=== PATIENT | male | born 1955 | race Caucasian/White ===

== ENCOUNTER 2020-02-13 12:21 | Outpatient (NON) | payer MEDICARE, OTHER, SELFPAY ==
[2020-02-13 16:05] LABS: Influenza Control Positive
[2020-02-14 19:25] LABS: SARS-CoV-2 RNA PCR Negative
== END 2020-02-13 12:22 ==
PROVIDERS: PCP Internal Medicine; Visit Provider Internal Medicine
DX: Z20.828 Contact with and (suspected) exposure to other viral communicable diseases (principal)
CPT/HCPCS: 87635; 87804; C9803; U0003

== ENCOUNTER 2021-07-21 22:24 | Emergency (ER) | payer MEDICARE, OTHER, SELFPAY ==
--- NOTE | ~2021-07-21 | CT_ITS ---
EXAMINATION: CT abdomen pelvis wo con DATE: 07/22/2021 00:44 INDICATION: Left flank pain. TECHNIQUE: Computed tomography (CT) of the abdomen and pelvis was performed without intravenous contr ast. Automated exposure control and iterative reconstruction technique were employed. The dose-length product was 1578.55 mGy-cm. COMPARISON: CT abdomen and pelvis 05/03/2004 FINDINGS: The visualized portions of the lung bases demonstrate mild atelectasis. No pleural effusion . The heart size is normal. No pericardial effusion. There is diffuse hepatic steatosis. The gallblad symone, spleen, pancreas, adrenal glands, and right kidney are normal. There is a 1 mm stone in left kid greer. There is mild left hydronephrosis and hydroureter. There is a 2 mm stone in distal left ureter. There is diverticulosis of the colon without evidence of diverticulitis. The appendix is normal. Ther e is a left inguinal hernia containing fat. There are no pathologically enlarged lymph nodes. There i s no free intraperitoneal fluid. There is severe lower lumbar spondylosis. IMPRESSION: 1. 2 mm stone in distal left ureter with mild left hydronephrosis and hydroureter. 2. 1 mm nonobstructing left kidney stone. Reviewed, dictated and finalized at location A. IMPRESSION: 1. 2 mm stone in distal left ureter with mild left hydronephrosis and hydrouret er. 2. 1 mm nonobstructing left kidney stone.
[2021-07-21 22:36] VITALS: BP 199/105; PULSE 68; RESP 16; TEMP 36.4; O2SAT 99
[2021-07-21 22:53] LABS: Basophils Absolute Auto 0.1 K/mm3 (0.0-0.1); Eosinophils Absolute Auto 0.3 K/mm3 (0-0.3); Eosinophils Percent Auto 4.9 % (0-4.4); Hematocrit 46.1 % (42.0-52.0); Hemoglobin 15.3 g/dL (14.0-18.0); Immature Granulocyte Absolute 0.02 K/mm3 (0.00-0.031); Immature Granulocyte Percent A 0.3 % (0-0.5); Lymphocytes Absolute Auto 1.27 K/mm3 (0.9-3.2); Lymphocytes Percent Auto 21.4 % (18.3-44.2); Mean Corpuscular HGB Conc 33.2 g/dl (32-36); Mean Corpuscular Hemoglobin 30.2 pg (26-34); Mean Corpuscular Volume 91.1 fl (80-100); Mean Platelet Volume 9.8 fl (7.4-10.4); Monocytes Absolute Auto 0.6 K/mm3 (0.1-0.6); Monocytes Percent Auto 10.4 % (2.6-8.5); Neutrophils Absolute Auto 3.7 K/mm3 (1.3-6.7); Platelet Count Result 246 k/mm3 (150-375); Red Blood Count 5.06 M/mm3 (4.6-6.20); Red Cell Distribution Width 14.1 % (11.5-14.5); White Blood Count 5.9 K/mm3 (4.5-10.0)
[2021-07-21 23:02] LABS: Alanine Aminotransferase 62 U/L (4-50); Albumin Level 4.2 g/dL (3.5-5.1); Alkaline Phosphatase 51 U/L (38-126); Anion Gap 4 mmol/L (8-16); Aspartate Amino Transferase 62 U/L (17-59); Bilirubin,Total 0.4 mg/dL (0.2-1.3); Blood Urea Nitrogen 18 mg/dL (9-20); Calcium 8.7 mg/dL (8.4-10.2); Carbon Dioxide 31 mmol/L (22-30); Chloride 103 mmol/L (98-107); Estimated CRCL calculation 68 ml/min; Estimated Glomerular Filt Rate 55; Glucose 109 mg/dL (65-110); Potassium 4.4 mmol/L (3.4-5.0); Sodium 138 mmol/L (137-145)
[2021-07-21 23:39] LABS: Add Urine Microscopic? YES; Appearance Urine Clear (Clear); Bilirubin Urine Negative (Negative); Blood Urine 3+ (Negative); Color Urine Yellow (Yellow); Glucose Urine UA Negative (Negative); Ketones Urine Negative (Negative); Leukocyte Esterase Ur Negative LEU/UL (Negative); Mucus Urine Rare /lpf; Nitrate Urine Negative (Negative); Protein Urine Negative (Negative); Specific Grav Ur 1.019 (1.001-1.035); Urobilinogen Urine Negative mg/dL (<2.0); WBC Urine 0-3 /hpf
[2021-07-22 00:30] VITALS: BP 114/92; PULSE 61; RESP 14; O2SAT 96
--- NOTE | 2021-07-22 01:27 | PC.NURSE ---
vrbo po norco 5/325mg per erp dr higgins
--- NOTE | 2021-07-22 01:27 | ED.GENADULT ---
HPI - General Adult General Chief complaint: Urogenital-Male Stated complaint: kidney stone Time Seen by Provider: 07/21/21 23:27 Source: patient Mode of arrival: ambulatory Limitations: no limitations History of Present Illness HPI narrative: 66-year-old with a history of kidney stones, hypothyroidism here with complaints of left-sided abdominal pain. Patient states that he had intense pain few hours ago by the time he came to the ER his pain has much subsided. He stated he was initially nauseated but it is much resolved he denies any fever or chills. No history of any blood in the urine. Onset (ago): hour(s) (6) Location: abdomen Radiation: back Severity: moderate Severity scale (1-10): 3 Quality: stabbing and aching Pain Consistency: intermittent Relieving factors: none Associated symptoms: nausea/vomiting Treatments prior to arrival: none Related Data Home Medications Medication Instructions Recorded Confirmed aspirin 81 mg tablet,delayed 81 mg PO DAILY 09/30/19 10/02/20 release fexofenadine 180 mg tablet 180 mg PO DAILY 09/30/19 10/02/20 ibuprofen-diphenhydramine citrate 1 cap PO ONCE PRN 09/30/19 10/02/20 200 mg-38 mg tablet Allergies Allergy/AdvReac Type Severity Reaction Status Date / Time Penicillins Allergy Intermediate HIVES Verified 07/21/21 22:39 rofecoxib Allergy Intermediate Other Verified 07/21/21 22:39 Review of Systems Review of Systems: All systems reviewed & are unremarkable except as noted in HPI and below Constitutional: Constitutional: Reports no additional constitutional complaints Eyes: Eyes: Reports no additional eye complaints ENT: Reports system reviewed and no additional complaints, except as documented Cardiovascular: Cardiovascular: Reports no additional cardiovascular complaints Respiratory: Respiratory: Reports no additional respiratory complaints Gastrointestinal: Gastrointestinal: Reports as per HPI Musculoskeletal: Musculoskeletal: Reports no additional musculoskeletal complaints Integumentary/Breasts: Skin/Breast: Reports system reviewed and no additional complaints, except as docu Neurologic: Reports system reviewed and no additional complaints, except as documented PMFSH Family History Family History Mother Patient's mother is Father Patient's father is Sibling Patient's sister is Other Diabetes mellitus Family history of arthritis Family history of malignant neoplasm of male breast Social History Social History Smoking status: Never smoker Second hand tobacco smoke exposure: No Alcohol intake: current Substance use: never Exam Narrative: GENERAL: Well-appearing, well-nourished, and in no acute distress. HEAD: Normocephalic, atraumatic. EYES: PERRLA and EOMI.. NECK: Supple. CHEST: Clear to auscultation. No respiratory distress. HEART: Regular rate and rhythm. No murmur heard. Normal peripheral pulses. ABDOMEN: Soft, nontender, nondistended, normal active bowel sounds. EXTREMITIES: Normal range of motion. No edema. SKIN: Warm, dry, no rash. NEURO: No focal deficits. Alert and oriented x3. PSYCH: Normal mood and affect. Course Course Emergency Course: Patient states his pain is very minimal, discussed his lab, CT findings. Recommended him to drink plenty of fluids as tolerated take pain medication as prescribed, follow-up with urologist if it is not getting any better. Vital Signs Vital signs: Vital Signs Temperature 36.4 C 07/21/21 22:36 Pulse Rate 68 07/21/21 22:36 Respiratory Rate 16 07/21/21 22:36 Blood Pressure 199/105 H 07/21/21 22:36 Pulse Oximetry 99 07/21/21 22:36 Temperature 36.4 C 07/21/21 22:36 Pulse Rate 68 07/21/21 22:36 Respiratory Rate 16 07/21/21 22:36 Blood Pressure 199/105 H 07/21/21 22:36 Pulse Oximetry 99
[2021-07-22 01:28] VITALS: BP 175/99; PULSE 65; RESP 20; O2SAT 96
[2021-07-22] MEDS: HYDROcodone/acetaminophen (*CRX) 5-325 MG TABLET 1 TAB PO (01:32)
== END 2021-07-22 01:37 | disposition home or self-care (01) ==
PROVIDERS: Emergency Provider Family Medicine; PCP Internal Medicine
DX: N13.2 Hydronephrosis with renal and ureteral calculous obstruction (principal); E03.9 Hypothyroidism, unspecified; Z79.82 Long term (current) use of aspirin; Z87.442 Personal history of urinary calculi
CPT/HCPCS: 36415; 74176; 80053; 81001; 85025; 99284; A9270

== ENCOUNTER 2024-10-04 08:18 | Outpatient (CLI) | payer MEDICARE, OTHER, SELFPAY ==
--- NOTE | ~2024-10-04 | XR_ITS ---
EXAM/PROCEDURE: XR chest 2V - 10/04/2024 8:21 CDT HISTORY: 69 years old Male with J18.9 - Pneumonia, unspecified organism TECHNIQUE: Two view(s) of the chest. COMPARISON: None available. FINDINGS: LUNGS/ PLEURA: No focal consolidation. No appreciable pneumothorax or large pleural effusion. HEART/ MEDIASTINUM: Heart appears normal in size. BONES: No acute osseous abnormality. OTHER: Visualized upper abdomen is unremarkable. IMPRESSION: No acute process. Reviewed, dictated and finalized at location A. IMPRESSION: No acute process.
== END 2024-10-04 08:19 | disposition home or self-care (01) ==
LOC: MICIMG 08:19
PROVIDERS: PCP Nurse Practitioner; Visit Provider Nurse Practitioner
DX: J18.9 Pneumonia, unspecified organism (principal)
CPT/HCPCS: 71046

== ENCOUNTER 2024-10-14 08:08 | Outpatient (CLI) | payer MEDICARE, OTHER, SELFPAY ==
--- NOTE | ~2024-10-14 | MR_ITS ---
EXAMINATION: MR knee RT wo con DATE: 10/14/2024 08:48 INDICATION: Right knee pain TECHNIQUE: Magnetic resonance imaging (MRI) of the right knee was performed without intravenous contr ast. Sequences included coronal PD-weighted FSE, coronal PD-weighted FS FSE, sagittal T2-weighted FS E, sagittal PD-weighted FS FSE and axial PD weighted fat saturated FSE. COMPARISON: None. FINDINGS: Medial compartment: Complex tear at the posterior horn of the medial meniscus. There is a meniscal cyst extending 4.5 cm in length along the periphery of the posterior horn and posterior body of the medial meniscus and whi ch measures up to 1.6 x 1.1 cm maximal orthogonal dimensions. Deep chondral ulceration at the anterio r to central weightbearing medial femoral condyle. Additional less severe partial thickness chondral ulceration with chondral surface regularity along the posterior medial margin of the medial tibial pl ateau where there is also a small focus of subarticular edema-like signal change. There are small reg ions of both regions of chondromalacia at the central weightbearing medial femoral condyle and at the anteromedial margin of the medial tibial plateau which demonstrate mild edema surrounding subtle khoi ear subcortical low signal in this could be related to either chondral malacia or potentially subacut e impaction fractures or stress fractures related to altered weight distribution resulting from the m eniscal tear. Lateral compartment: Small tear of indeterminate morphology along the inner free edge at the junction of the posterior hor n and posterior body of the lateral meniscus. Articular cartilage is normal. Patellofemoral compartment: Full/near full-thickness chondral ulceration with underlying cortical irregularity and subarticular e richie-like signal change along the lateral trochlea. Less severe partial thickness chondral fissuring along the medial trochlea. Partial-thickness chondral ulceration and deep fissuring with a few small focus of subarticular edema-like signal change at the medial and lateral patellar facets. Ligaments and tendons: Anterior and posterior cruciate ligaments are normal. Fibular collateral ligament complex is normal. There is thickening and mild increased signal the proximal medial collateral ligament without surroun ding edema to suggest acute injury consistent with scarring related to chronic sprain. Mild enthesopa thy at the proximal patellar tendon with tiny enthesopathic ossicle. Remainder of the patellar tendon and the quadriceps tendon are normal. The visualized medial and lateral hamstring tendons as well as the iliotibial band are normal. Fluid: Physiologic amount of fluid in the joint space. No loose osteochondral bodies identified. Osseous/other: Low signal intensity bone island underlying the lateral tibial plateau. No fracture or pathologic mar row replacing process. Prominent subcutaneous varicosities at the posterior aspect of the knee. IMPRESSION: 1. Complex tear of the posterior horn of the medial meniscus with associated peripheral large paramen iscal cyst. 2. Suggestion of small tear along the inner free edge at the junction of the body and posterior horn of the lateral meniscus. 3. 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 4. 2 small regions of marrow signal change underlying the central weightbearing medial femoral condyl e and posterior medial margin of the medial tibial plateau which could be due to overlying chondral m alacia or more suspicious for healing subacute impaction fractures. 5. Scarring consistent with chronic sprain of the proximal medial collateral ligament. Reviewed, dictated and finalized at location A. IMPRESSION: 1. Complex tear of the posterior horn of the medial meniscus with associated pe ripheral large parameniscal cyst. 2. Suggestion of small tear along the inner free edge at the junction of the coral dy and posterior horn of the lateral meniscus. 3. 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 4. 2 small regions of marrow signal change underlying the central weightbearing medial femoral condyle and posterior medial margin of the medial tibial platea u which could be due to overlying chondral malacia or more suspicious for heali ng subacute impaction fractures. 5. Scarring consistent with chronic sprain of the proximal medial collateral li gament.
== END 2024-10-14 08:09 | disposition home or self-care (01) ==
PROVIDERS: PCP Nurse Practitioner; Visit Provider Nurse Practitioner
DX: S83.231A Complex tear of medial meniscus, current injury, right knee, initial encounter (principal); X58.XXXA Exposure to other specified factors, initial encounter; M17.11 Unilateral primary osteoarthritis, right knee
CPT/HCPCS: 73721

== ENCOUNTER 2024-10-24 11:27 | Outpatient (CLI) | payer MEDICARE, OTHER, SELFPAY ==
--- OUTSIDE RECORDS SUMMARY | 2024-10-24 11:34 | XMS_ITS | Clinical Summary ---
Author Organization [facility] [address] Address [address] [place] [id number] Care Team Providers Care Workers' Compensation Mediator Name Role Phone Randy Kenyon DO Primary Care Provider [phone] Allergies Active Allergy Reactions Criticality Noted Date Comments Penicillins Hives Medium 08/11/2024 Rofecoxib Muscle pain Medium 08/11/2024 Medications levothyroxine (SYNTHROID) 75 mcg tablet Take 1 tablet (75 mcg total) by mouth 4 Active losartan (COZAAR) 100 mg tablet Take 1 tablet (100 mg total) by mouth daily Active aspirin (Aspirin Childrens) 81 mg chewable tablet Take by mouth Active fexofenadine (YAZMIN) 180 mg tablet Take 1 tablet (180 mg total) by mouth daily Active azithromycin (ZITHROMAX) 250 mg tablet Take 2 tabs (500 mg) by mouth today, than 1 tab (250 mg) daily for 4 days. 6 tablet 5 Active albuterol HFA (PROVENTIL HFA,VENTOLIN HFA,PROAIR HFA) 90 mcg/actuation inhaler Inhale 2 puffs every 6 (six) hours as needed for wheezing or shortness of breath 1 each 5 Active benzonatate (TESSALON) 200 mg capsuleIndicati ons:Acute cough Take 1 capsule (200 mg total) by mouth 3 (three) times a day as needed for cough 30 capsule 5 Active Active Problems No known active problems Encounters Date Type Department Care Team Description 08/20/2024 10:35 AM CDT Ancillary Procedure [facility] Imaging at [address] [address] Acute cough 08/20/2024 Results Follow-Up [facility] at [address] [address] Ernestine Khan, MARIO XR Chest Pa Lateral 2 Views 08/19/2024 11:15 AM CDT Office Visit [facility] at [address] [address] Ernestine Khan, MARIO Acute cough (Primary Dx) 08/11/2024 2:00 PM CDT Office Visit [facility] at [address] [address] Daniela Wen PA Lower respiratory infection (Primary Dx) from Last 3 Months Social History Tobacco Use Types Packs/Day Years Used Date Smoking Tobacco: Never Assessed Sex and Gender Information Value Date Recorded Sex Assigned at Not on file 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 Gender Identity Not on file Sexual Orientation Not on file Obstetrics History Last Filed Vital Signs Vital Sign Reading Time Taken Comments Blood Pressure 134/80 08/19/2024 10:11 AM CDT Pulse 87 08/19/2024 10:11 AM CDT Temperature 36.6 C (97.9 F) 08/19/2024 10:11 AM CDT Respiratory Rate 22 08/19/2024 10:11 AM CDT Oxygen Saturation 96% 08/19/2024 10:11 AM CDT Inhaled Oxygen Concentration - - Weight 123.4 kg (272 lb) 08/19/2024 10:11 AM CDT Height 190.5 cm (6' 3) 08/11/2024 2:10 PM CDT Body Mass Index 34 08/11/2024 2:10 PM CDT Plan of Treatment Health Maintenance Due Date Last Done Comments Colon Cancer Screening-Colonoscopy 1955 Depression Screening 1955 Fall Risk Assessment 1955 Hepatitis C Screening 1955 Prostate Cancer Screening-PSA 1955 DTaP/Tdap/Td Vaccine (1 - Tdap) 1966 Hepatitis B Screening 1973 Pneumococcal vaccine 65+ (1 of 1 - PCV) 2005 Abdominal Aortic Aneurysm (A AA) Screen 01/12/2020 Well Visit 65+ 01/12/2020 Covid-19 Vaccine (4 - 2023-2 5 season) 2023 03/04/2021, 06/12/2020, 05/22/2020 Influenza Vaccine (#1) 2024 , 12/12/2022, 02/18/2022, Additional history exists Zoster Vaccine Completed 11/30/2019, 05/2019, 10/16/2012 Procedures Procedure Name Priority Date/Time Associated Diagnosis Comments XR CHEST PA LATERAL 2 VIEWS Schedule WILFREDO, Read WILFREDO (Appt Today, Awaiting Results) 08/20/2024 10:37 AM CDT Acute cough from Last 3 Months Results * XR Chest Pa Lateral 2 Views (08/20/2024 10:37 AM CDT) Anatomical Region Laterality Modality Body, Chest N/A Digital Radiogra phy 08/20/2024 7:31 PM CDT Narrative 08/20/2024 7:34 PM CDT EXAM DESCRIPTION: XR CHEST PA LATERAL 2 VIEWS REASON FOR STUDY: cough Pt complains of cough x 2 weeks. No chest surgery. No asthma,copd,cancer,heart disease. No smoking hx TECHNIQUE: 2 radiographic view(s) of the chest. COMPARISON: None FINDINGS: Lungs are well inflated. Linear airspace opacity within the left midlung. Indeterminate minimal left basilar opacities are also noted. No consolidation. No significant pleural effusion or pneumothorax. Heart size and mediastinal contours are normal. IMPRESSION: Minimal left lung airspace opacities. This may represent atelectasis or pneumonia. Recommend follow-up radiographs in 6-8 weeks. THIS IS AN ELECTRONICALLY VERIFIED FINAL REPORT 08/20/2024 7:34 PM - Electronically signed by Prasanth Doyle M.D. AG T: Report ID: [id number] Reading Location: [id number] Procedure Note Prasanth Doyle MD - 08/20/2024 EXAM DESCRIPTION: XR CHEST PA LATERAL 2 VIEWS REASON FOR STUDY: cough Pt complains of cough x 2 weeks. No chest surgery. Noasthma,copd,cancer,heart disease. No smoking hx TECHNIQUE: 2 radiographic view(s) of the chest. COMPARISON: None FINDINGS: Lungs are well inflated. Linear airspace opacity within theleft midlung. Indeterminate minimal left basilar opacities are also noted. No consolidation. No significant pleural effusion or pneumothorax. Heart size and mediastinal contours are normal. IMPRESSION: Minimal left lung airspace opacities. This may represent atelectasis or pneumonia. Recommend follow-up radiographs in 6-8 weeks. THIS IS AN ELECTRONICALLY VERIFIED FINAL REPORT 08/20/2024 7:34 PM - Electronically signed by Prasanth Doyle M.D. AG T: Report ID: [id number] Reading Location: [place] [address] Ernestine Khan NP IMG XR PROCEDURES Final Re sult from Last [address] [place] [address] [facility] MEDICARE ADVANTAGE [employer] Care Teams Workers' Compensation Mediator Relationship Specialty Start Date End Date Randy Kenyon DO [address] [facility] [address] [place] [address] PCP - General Internal Medicine 08/20/24
--- OUTSIDE RECORDS SUMMARY | 2024-10-24 11:34 | XMS_ITS | Continuity of Care Document ---
Author Organization [facility] Address [address] [place] [address] Phone Care Team Providers Care Certified Hyperbaric Technician Name Role Phone Coburn OD, Keshawn Unavailable Unavailable Advance Directives Directive Yes / No Effective Date File Name No Information Encounters Encounter Description Practice Location Reason(s) For Visit Diagnoses Date Provider Providers Copied on Encounter [facility], [address], [place], [place], [id number], [place] tel:[phone] [facility] No Information 8-200 1 Coburn OD Keshawn. [address] , [address], [place], [address], [place]. tel:[phone] Family History Family Member Type Diagnosis Age At Onset No Information Payers Payer name Insurance type Covered alliance party ID Authoriza tion(s) No Information Social History Type Description Quantity Date Captured Comments Sex Male Smoking Status No Information Chief Complaint And Reason For Visit No Information Reason For Referral Reason For Referral No Information History Of Present Illness Encounter Date Complaint History Of Prese nt Illness No Information Functional Status Date Functional Assessmen t No Information Instructions Date Instruction Additional Infor mation No Information Assessments Type Assessment Date No Information Patient Care Teams Name Effective Dates (start - stop) Status Members No Information
--- OUTSIDE RECORDS SUMMARY | 2024-10-24 11:34 | XMS_ITS | Continuity of Care Document ---
Author Name [facility] Organization [facility] Care Team Providers Care Evp General Counsel Name Role Phone [facility] Unavailable Unavailable Medications Combined list of outpatient medications from Department of Defense and Veterans Affairs facilities.Medications provided include 1) outpatient medications from the last 15 months, and 2) patient-reported medications. Medication Details Route Status Patient Instructions Prescription Expires Prescription Number Last Dispense Date Ordering Provider Order Date Order Qty Source LOSARTAN POTASSIUM (losartan potassium), 100 MG, TABLET, ORAL, [facility], 90 ea. BOTTLE Active [id number] 2023 90 Pharmac y Data Transac tion Service Facilit y LOSARTAN POTASSIUM (losartan potassium), 100 MG, TABLET, ORAL, [facility], 90 ea. BOTTLE Cancele d [id number] : 2023 0 Pharmac y Data Transac tion Service Facilit y TRIAMCINOLO NE ACETONIDE (TRIAMCINOL ONE ACETONIDE), 0.1%, CREAM(GM), TOPICAL, FOUGERA, 15 g TUBE Active [id number] 2023 45 Pharmac y Data Transac tion Service Facilit y Immunizations Combined list of available immunizations from the Department of Defense and Veterans Affairs facilities. Immunization Series Date Given Administered By Site Reaction Lot Number CVX Code Drug Broadcast Meteorologist Status Comments Source COVID-19, mRNA, LNP-S, PF, 30 mcg/0.3 mL dose 2020 LOZANO [employer] (PFR) Not Given COVID-19, mRNA, LNP-S, PF, 30 mcg/0.3 mL dose [facility] Influenza vaccine, quadrivalent, adjuvanted 2020 APRIL, () Not Given Influenza vaccine, quadrival ent, adjuvante d [facility] Influenza, injectable, MDCK, preservative free, quadrivalent 2019 ALUL, () Not Given Influenza , injectabl e, MDCK, preservat estefani free, quadrival ent DoD zoster recombinant 2019 ALUL, () Not Given zoster recombina nt DoD zoster recombinant 2019 ALUL, () Not Given zoster recombina nt Do[facility] Influenza, seasonal, injectable 2015 KENNETH, () Not Given Influenza , seasonal, injectabl e Do[facility] Influenza, seasonal, injectable 2015 KENNETH, () Not Given Influenza , seasonal, injectabl e DoD Social History Combined list of available smoking, tobacco, and other social history from Department of Defense and Veterans Affairs facilities. Social History Type Response Date Comment Sour e This section is an empty social history section. DoD
--- OUTSIDE RECORDS SUMMARY | 2024-10-24 11:34 | XMS_ITS | Encounter Summary ---
Author Organization [facility] Address [address] [facility] [place] [address] Care Team Providers Care Global Creative Chairman Name Role Phone Unavailable Primary Care Provider Unavailabl e Encounter Details Date Type Department Care Team (Late st Contact Info) Description 07/27/2018 Lab Requisition [facility] Care DermPath Lab [address] 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 Gender Identity Not on file Sexual Orientation Not on file documented as of this encounter Plan of Treatment Not on file documented as of this encounter Procedures Procedure Name Priority Date/Time Associated Diagnosis Comments DERMATOPATHOLOGY Routine 07/26/2018 12:0 0 AM CDT documented in this encounter Results * DERMATOPATHOLOGY (07/26/2018 12:00 AM CDT) Case Report Dermatopathology Report Case: [id number] Authorizing Provider: Missy Ludwig MD Collected: 07/26/2018 12:00 AM Pathologist: Palmira Martínez MD Received: 07/27/2018 07:02 AM Specimen: Skin, left arm 9 1:07 PM CDT DERMATOPATHOLOGY LABORATORY Final Diagnosis Specimen A. SKIN, left arm: LICHEN PLANUS-LIKE KERATOSIS (BENIGN LICHENOID KERATOSIS), RSOLVING (L82.1) 9 1:07 PM CDT DERMATOPATHOLOGY LABORATORY at 1307 CDT Clinical History Benjamin scaly papule, LPLK vs recurrent BCC. 1:07 PM T DERMATOPATHOLOGY LABORATORY Gross Description Specimen A: Received is one formalin filled container labeled with the patient's name and designated left arm. The specimen consists of a shave measuring [id number]. Jar 0. 1:07 PM T DERMATOPATHOLOGY LABORATORY Microscopic Description Specimen A. SKIN, left arm: The epidermis is mildly acanthotic. There is a focal lichenoid infiltrate with vacuolar changes of basilar keratinocytes and scattered necrotic keratinocytes. Colloid bodies and melanophages are seen. 1:07 PM CDT DERMATOPATHOLOGY LABORATORY Disclaimer An external and internal positive and negative controls are appropriate for the histochemical, immunohistochemical and immunofluorescence stain(s) in this case (if any), except where stated explicitly. The performance characteristics of the stain(s) cited in this report were developed and its performance characteristic determined by the Dermatopathology Laboratory at [facility], directed by Dr. Imtiaz Mcmahon. These tests need not be, and therefore are not, approved by the [place] Food and Drug Administration. The tests are used for clinical purposes. Billing Codes Specimen Charges Stain Charges 14353 1 1:07 PM CDT DERMATOPATHOLOGY LABORATORY Embedded Images 1:07 PM CDT DERMATOPATHOLOGY LABORATORY Pathology/Cytolog y TISSUE SPECIMEN FROM SKIN / Unknown 07/26/2018 07/27/2018 7:02 AM CDT us Missy Ludwig MD LAB - PATHOLOGY/CYTOLOGY ORD ERABLES Final Result DERMATOPATHOLOGY LABORATORY [facility] - Department of Dermatology [address] [place] [address], 5th [place] [address], [facility] [phone] documented in this encounter Visit Diagnoses Not on filedocumented in this encounter
--- OUTSIDE RECORDS SUMMARY | 2024-10-24 11:34 | XMS_ITS | Referral Summary ---
Author Organization [address] [address] Care Team Providers Care Environmental Health Inspector Name Role Phone Randy Kenyon DO Primary Care Provider [phone] Encounters Date Type Department Care Team Description 08/20/2024 Results Follow-Up [facility] at [address] [address] Ernestine Khan, MARIO XR Chest Pa Lateral 2 Views 08/20/2024 10:35 AM CDT Ancillary Procedure [facility] Imaging at [address] [address] Acute cough 08/19/2024 11:15 AM CDT Office Visit [facility] at [address] [address] Ernestine Khan, MARIO Acute cough (Primary Dx) 08/11/2024 2:00 PM CDT Office Visit [facility] at [address] [address] Daniela Wen PA Lower respiratory infection (Primary Dx) from Last 3 Months Allergies Active Allergy Reactions Criticality Noted Date Comments Penicillins Hives Medium 08/11/2024 Rofecoxib Muscle pain Medium 08/11/2024 Medications levothyroxine (SYNTHROID) 75 mcg tablet Take 1 tablet (75 mcg total) by mouth Active losartan (COZAAR) 100 mg tablet Take [...] Active Active Problems No known active problems Social History Tobacco Use Types Packs/Day Years Used Date Smoking Tobacco: Never Assessed Sex and Gender Information Value Date Recorded Sex Assigned at Not on file 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 AG T: Report ID: [id number] Reading Location: [id number] Procedure Note Prasanth Doyle MD - 08/20/2024 [...] Prasanth Doyle M.D. AG T: Report ID: [id number] Reading Location: [id number] Ernestine Khan CARPENTER IMG XR PROCEDURES Final Re sult from Last 3 Months Insurance [facility] MEDICARE ADVANTAGE [facility] MEDICARE Address: [facility] [address] [place] [address] [employer] Care Teams Environmental Health Inspector Relationship Specialty Start Date End Date Randy Kenyon DO [address] [facility] [address] [place] [address] PCP - General Internal Medicine 08/20/24
--- OUTSIDE RECORDS SUMMARY | 2024-10-24 11:34 | XMS_ITS | Clinical Summary ---
Author Organization [facility] Address [address] [place] [address] Care Team Providers Care Pickle Water Pump Operator Name Role Phone Unavailable Primary Care Provider Unavailabl e Source Comments [facility],non-owned Affiliates and Associated Physician Practices is amultiple site organization consisting of ambulatory clinics and hospital sitesin [place], [place], [place] and [place]. This disclosure is being madepursuant to the Care Everywhere program and may not contain all information available regarding this patient. 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 Gender Identity Not on file Sexual Orientation Not on file Plan of Treatment Health Maintenance Due Date Last Done Comments COLOGUARD (AGES 45-75) - COL ON CA SCREENING 1955 COLON MONITORING 1955 COLONOSCOPY - COLON CA SCREENING 1955 CT COLONOGRAPHY - COLON CA SCREENING 1955 Colorectal Cancer Screening 1955 FIT - COLON CA SCREENING 1955 FLEX SIG - COLON CA SCREENING 1955 LIPID TESTING 1955 MEDICARE AWV 12 MONTHS 1955 HEPATITIS C SCREENING 01/06/1973 DTAP/TDAP/TD VACCINES (1 - Tdap) 1974 PNEUMOCOCCAL VACCINE 50+ (1 of 1 - PCV) 2005 ZOSTER VACCINE (1 of 2) 2005 COVID-19 VACCINE ( - 2023-2 5 season) 2023 DEPRESSION SCREENING 03/27/2024 INFLUENZA VACCINE (#1) 2024 Respiratory Syncytial Virus (RSV) Vaccine Pt: or over 60 yrs (1 - 1-dose 75+ series) 2030 HEPATITIS B VACCINE Aged Out No longe r eligible based on patient's age to complete this topic HIB VACCINE Aged Out No longer eligi ble based on patient's age to complete this topic HPV VACCINE Aged Out No longer eligi ble based on patient's age to complete this topic MENINGOCOCCAL (Group B) VACC INE SHARED DECISION-MAKING Aged Out No longer eligibl e based on patient's age to complete this topic MENINGOCOCCAL GROUPS A/C/Y/W VACCINE Aged Out No longer eligible b ased on patient's age to complete this topic [place] [address] [facility] Address: [facility] CLAIM[facility] [address] [place] [address] MEDICARE
--- NOTE | 2024-10-24 11:38 | ECG_ITS ---
Test Date: 2024-10-24 11:59:27 Measurements Intervals [place] Rate: 62 P: -14 NC: 190 QRS: -15 QRSD: 123 T: 30 QT: 404 QTc: 413 Interpretive Statements SINUS RHYTHM INTRAVENTRICULAR CONDUCTION DELAY BORDERLINE R WAVE PROGRESSION, ANTERIOR LEADS MINIMAL Q WAVES- HIGH LATERAL LEADS BORDERLINE ECG No previous ECG available for comparison Electronically Signed On 10-25-2024 06:28:14 CDT by Kirby Tubbs D.O.
== END 2024-10-24 11:28 | disposition home or self-care (01) ==
LOC: ANHSURGERY 11:31
PROVIDERS: PCP Nurse Practitioner; Visit Provider Orthopaedic Surgery
DX: Z01.810 Encounter for preprocedural cardiovascular examination (principal); R94.31 Abnormal electrocardiogram [ECG] [EKG]
CPT/HCPCS: 93005

== ENCOUNTER 2024-10-28 00:30 | Day surgery (SDC) | payer MEDICARE, OTHER, SELFPAY ==
[2024-10-23 14:28] VITALS: BMI 34.9
--- NOTE | 2024-10-23 14:50 | PC.NURSE ---
Report to the Outpatient Waiting Room, entrance under the green pavilion located off [facility], at time __7:00AM___ on date __10/28/24___. Planned Procedure Time: __9:00AM____.? Time changes happen often and if your time is changed the preop area will call you the afternoon before. - You and your visitor will be asked to self-screen and do not enter if you have any COVID symptoms. Please call surgeon if you need to reschedule. - A mask is optional within the hospital at this time. Patients may have clear liquids (water, carbonated beverages, clear teas, apple juice) until 3 hours prior to surgery (6:00AM) with a maximum of 20 ounces. - No food from midnight until time of surgery and no smoking, or chewing tobacco (or any form of nicotine). No chewing gum, candy or mints. Take only the following medications with a SIP of water on the morning of surgery: ____LEVOTHYROXINE MAY USE ALBUTEROL INHALER NEEDED DO NOT STOP ANY OF YOUR OTHER PRESCRIPTION MEDICATIONS PRIOR TO SURGERY EXCEPT THE FOLLOWING Hold all vitamins and supplements for 3 days per anesthesiologist. Medications to discontinue per physician ___HOLD ASPIRIN AND DICLOFENAC (NSAIDS) PER DR JONES - PATIENT TO CALL OFFICE TO CONFIRM. Date to take last dose Please no make-up, nail belarusian, hairspray, perfume, deodorant, or body powder the day of surgery.? No jewelry (including any body piercings) or valuables the day of surgery, leave them at home.? Please take a shower or bath the night before, or the morning of, surgery with an antibacterial soap.? Wear comfortable, loose fitting clothing.? - Jewelry must be removed prior to entering the operating room.? Rings and piercings that are not removed may be cut off. - The hospital will not accept responsibility for valuables.? - Please leave all valuables, including medications, at home the day of surgery. If you are going home after surgery, a licensed ice delivery driver must drive you home.? - NO public transportation without another adult if you receive anesthesia. - We recommend that an adult stay with you for 24 hours following discharge. - We also recommend that you do not drive, make important decision, drink alcoholic beverages, or take any drugs that were not prescribed by your health care provider for at least 24 hours after your discharge time. Follow any additional instructions given to you from your surgeon. Telephone instructions given to ____PATIENT and asked if any additional questions and then verbalized understanding. Patient advised to call surgeon office or pre surgery nurse liaison [phone] if any additional questions.
--- NOTE | 2024-10-25 20:16 | PM.IMHP ---
H&P: HPI History of Present Illness Date/Time: 10/25/24 20:16 Chief Complaint: Patient is knee pain right. He has catching locking and pain in the right knee. He has failed conservative treatment like to consider arthroscopic intervention. He has an MRI that shows a meniscal tear. 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 Other Diabetes mellitus Family history of arthritis Family history of malignant neoplasm of male breast Social History Social History (Updated 10/22/24 @ 07:27 by Alise Granados [facility]) Smoking status: Never smoker Second hand tobacco smoke exposure: No Alcohol intake: current Substance use: never Substance use type: does not use Current Housing: Decline to Answer Concerned About Future Housing: Decline to Answer Difficulty Paying Gas/Electric Bills: Decline to Answer Difficulty Paying for Meds: Decline to Answer Currently Unemployed: Decline to Answer Education: Decline to Answer Difficulty w/ Childcare or Family Care: Decline to Answer Living arrangements: with family Additional living arrangements comments: Occupation/Education: retired 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[employer] Gender identity (if verbalized by the patient): Male Spiritual care concerns: No Meds Home Medications and Allergies Home Medications ?Medication ?Instructions ?Recorded ?Confirmed ?Type aspirin 81 mg tablet,delayed 81 mg PO DAILY 09/30/19 10/23/24 History release ibuprofen-diphenhydramine citrate 1 cap PO ONCE PRN sleep 09/30/19 10/23/24 History 200 mg-38 mg tablet (Advil PM) levothyroxine 75 mcg tablet 75 mcg PO DAILY #90 tabs 07/09/24 10/23/24 Rx losartan 100 mg tablet 100 mg PO DAILY #90 tabs 07/09/24 10/23/24 Rx albuterol sulfate 90 mcg/actuation 2 puff inhalation Q6H PRN 08/23/24 10/23/24 History aerosol inhaler (Ventolin HFA) shortness of breath or wheezing betamethasone valerate 0.1 % 1 applic topical BID PRN skin 08/23/24 10/23/24 History topical cream irritation loratadine 10 mg tablet (Claritin) 10 mg PO DAILY 08/23/24 10/23/24 History diclofenac sodium 75 mg 75 mg PO BID #40 tabs 10/01/24 10/23/24 Rx tablet,delayed release acetaminophen 500 mg tablet 1,000 mg PO QID PRN pain 10/23/24 10/23/24 History (Acetaminophen Extra Strength) Allergies Allergy/AdvReac Type Severity Reaction Status Date / Time Penicillins Allergy Intermediate HIVES Verified 10/23/24 14:22 rofecoxib AdvReac Intermediate Other Verified 10/23/24 14:22 Exam Narrative: On exam, he is tender if he is tender to palpation over the medial aspect of the knee. He has catching and locking with any manipulation. He is tender to palpation is pain to manipulation. Neurologically he is intact. Eyes: General: appearance normal, both eyes and all related structures Neck: Neck: supple Resp: Effort & Inspection: normal respiratory effort Cardio: Rate: regular rate Rhythm: regular rhythm Radiology Reports: Comments: Magnetic Resonance Report Signed Patient: Sam Dumont EXAMINATION: MR knee RT wo con DATE: 10/14/2024 08:48 INDICATION: Right knee pain TECHNIQUE: Magnetic resonance imaging (MRI) of the right knee was performed without intravenous contrast. Sequences included coronal PD-weighted FSE, coronal PD-weighted FS FSE, sagittal T2-weighted FSE, sagittal PD-weighted FS FSE and axial PD weighted fat saturated FSE. COMPARISON: None. FINDINGS: Medial compartment: Complex tear at the posterior horn of the medial meniscus. There is a meniscal cyst extending 4.5 cm in length along the periphery of the posterior horn and posterior body of the medial meniscus and which measures up to 1.6 x 1.1 cm maximal orthogonal dimensions. Deep chondral ulceration at the anterior to central weightbearing medial femoral condyle. Additional less severe partial thickness chondral ulceration with chondral surface regularity along the posterior medial margin of the medial tibial plateau where there is also a small focus of subarticular edema-like signal change. There are small regions of both regions of chondromalacia at the central weightbearing medial femoral condyle and at the anteromedial margin of the medial tibial plateau which demonstrate mild edema surrounding subtle linear subcortical low signal in this could be related to either chondral malacia or potentially subacute impaction fractures or stress fractures related to altered weight distribution resulting from the meniscal tear. Lateral compartment: Small tear of indeterminate morphology along the inner free edge at the junction of the posterior horn and posterior body of the lateral meniscus. Articular cartilage is normal. Patellofemoral compartment: Full/near full-thickness chondral ulceration with underlying cortical irregularity and subarticular edema-like signal change along the lateral trochlea. Less severe partial thickness chondral fissuring along the medial trochlea. Partial-thickness chondral ulceration and deep fissuring with a few small focus of subarticular edema-like signal change at the medial and lateral patellar facets. Ligaments and tendons: Anterior and posterior cruciate ligaments are normal. Fibular collateral ligament complex is normal. There is thickening and mild increased signal the proximal medial collateral ligament without surrounding edema to suggest acute injury consistent with scarring related to chronic sprain. Mild enthesopathy at the proximal patellar tendon with tiny enthesopathic ossicle. Remainder of the patellar tendon and the quadriceps tendon are normal. The visualized medial and lateral hamstring tendons as well as the iliotibial band are normal. Fluid: Physiologic amount of fluid in the joint space. No loose osteochondral bodies identified. Osseous/other: Low signal intensity bone island underlying the lateral tibial plateau. No fracture or pathologic marrow replacing process. Prominent subcutaneous varicosities at the posterior aspect of the knee. IMPRESSION: 1. Complex tear of the posterior horn of the medial meniscus with associated peripheral large parameniscal cyst. 2. Suggestion of small tear along the inner free edge at the junction of the body and posterior horn of the lateral meniscus. 3. 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 4. 2 small regions of marrow signal change underlying the central weightbearing medial femoral condyle and posterior medial margin of the medial tibial plateau which could be due to overlying chondral malacia or more suspicious for healing subacute impaction fractures. 5. Scarring consistent with chronic sprain of the proximal medial collateral ligament. Reviewed, dictated and finalized at location A. 20: Knee X-Ray 10/22/24 Knee MRI 10/17/24 Orthopedics Result Report 10/22/24 Assessment and Plan Assessment and plan (1) Acute lateral meniscus tear of right knee: Code(s): S83.281A - Other tear of lateral meniscus, current injury, right knee, initial encounter Status: Acute Assessment and Plan: Patient has mediolateral meniscal tears of the right knee. He has failed conservative treatment. He continues to have catching and locking in the knee would like to consider arthroscopic intervention. I discussed the risks, benefits, limitations, and alternatives with the patient the detail. He understands and agrees would like to proceed. Will proceed per his request. (2) Acute medial meniscus tear of right knee: Code(s): S83.241A - Other tear of medial meniscus, current injury, right knee, initial encounter Status: Acute
[2024-10-28] VITALS (9 sets, daily range): BP systolic 116–153; BP diastolic 72–91; PULSE 54–63; RESP 11–18; TEMP 36.3–36.7; O2SAT 94–97; BMI 34.7
--- OUTSIDE RECORDS SUMMARY | 2024-10-28 00:33 | XMS_ITS | Continuity of Care Document ---
Author Name [facility] Organization [facility] Care Team Providers Care Machine Maintenance Repairer Name Role Phone [facility] Unavailable Unavailable Medications Combined list of outpatient [...] ORAL, NOVADOZ PHARMAC, 90 ea. BOTTLE Active [id number] 4 2023 90 Pharmac y Data Transac tion Service Facilit y LOSARTAN POTASSIUM (losartan potassium), 100 MG, TABLET, ORAL, NOVADOZ PHARMAC, 90 ea. BOTTLE Cancele d [id number] : 2023 0 Pharmac y Data Transac tion Service Facilit y TRIAMCINOLO NE ACETONIDE (TRIAMCINOL ONE ACETONIDE), 0.1%, CREAM(GM), TOPICAL, FOUGERA, 15 g TUBE Active [id number] 4 2023 45 Pharmac y Data Transac tion Service Facilit y Immunizations Combined list of available immunizations from the Department of Defense and Veterans Affairs facilities. Immunization Series Date Given Administered By Site Reaction Lot Number CVX Code Drug Air Twist Operator Status Comments Source COVID-19, mRNA, LNP-S, PF, 30 mcg/0.3 mL dose 2020 LOZANO [employer] (PFR) Not Given COVID-19, mRNA, LNP-S, PF, 30 mcg/0.3 mL dose [facility] Influenza vaccine, quadrivalent, adjuvanted 2020 APRIL, () Not Given Influenza vaccine, quadrival ent, adjuvante d [facility] Influenza, injectable, MDCK, preservative free, quadrivalent [...]
--- OUTSIDE RECORDS SUMMARY | 2024-10-28 00:33 | XMS_ITS | Encounter Summary ---
Author Organization [facility] Address [address] [place] [address] Care Team Providers Care President Ergonomic Consulting Name Role Phone Unavailable Primary Care Provider Unavailabl e Encounter Details Date Type Department Care Team (Late st Contact Info) Description 07/27/2018 Lab Requisition [facility] Care DermPath Lab [address] [facility], [place] [id number] Missy Ludwig MD [address] [facility] [address] [place] [address] Social History Tobacco Use Types Packs/Day Years Used Date Smoking Tobacco: Never Assessed Sex and Gender Information Value Date Recorded Sex Assigned at Not on file 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 Gender Identity Not on file Sexual Orientation Not on file documented as of this encounter Plan of Treatment Not on file documented as of this encounter Procedures Procedure Name Priority Date/Time Associated Diagnosis Comments DERMATOPATHOLOGY Routine 07/26/2018 12:0 0 AM CDT documented in this encounter Results * DERMATOPATHOLOGY (07/26/2018 12:00 AM CDT) Case Report Dermatopathology Report Case: [id number] Authorizing Provider: Missy Ludwig MD Collected: 07/26/2018 12:00 AM Pathologist: Palmira Martínez MD Received: 07/27/2018 07:02 AM Specimen: Skin, left arm 9 1:07 PM CDT DERMATOPATHOLOGY LABORATORY Final Diagnosis Specimen A. SKIN, left arm: LICHEN PLANUS-LIKE KERATOSIS (BENIGN LICHENOID KERATOSIS), RSOLVING (L82.1) 9 1:07 PM CDT DERMATOPATHOLOGY LABORATORY at 1307 CDT Clinical History Calvin scaly papule, LPLK vs recurrent BCC. 1:07 PM T DERMATOPATHOLOGY LABORATORY Gross Description Specimen A: Received is one formalin filled container labeled with the patient's name and designated left arm. The specimen consists of a shave measuring [id number]. Jar 0. 1:07 PM T DERMATOPATHOLOGY LABORATORY [...] characteristic determined by the Dermatopathology Laboratory at [facility], directed by Dr. Imtiaz Mcmahon. These tests need not be, and therefore are not, approved by the [place] Food and Drug Administration. The tests are used for clinical purposes. Billing Codes Specimen Charges Stain Charges 16098 1 1:07 PM CDT DERMATOPATHOLOGY LABORATORY Embedded Images 1:07 PM CDT DERMATOPATHOLOGY LABORATORY Pathology/Cytolog y TISSUE SPECIMEN FROM SKIN / Unknown 07/26/2018 07/27/2018 7:02 AM CDT us Missy Ludwig MD LAB - PATHOLOGY/CYTOLOGY ORD ERABLES Final Result DERMATOPATHOLOGY LABORATORY [facility] - Department of Dermatology [address] [place] [address], 5th [place] [address], [facility] [phone] documented in this encounter Visit Diagnoses Not on filedocumented in this encounter
--- OUTSIDE RECORDS SUMMARY | 2024-10-28 00:33 | XMS_ITS | Referral Summary ---
Author Organization [place] [address] [address] Care Team Providers Care Concrete Rod Buster Name Role Phone Randy Kenyon DO Primary Care Provider Encounters Date Type Department Care Team Description 08/20/2024 Results Follow-Up [facility] at [address] [address] Ernestine Khan, MARIO XR Chest Pa Lateral 2 Views 08/20/2024 10:35 AM CDT Ancillary Procedure [facility] at [address] [address] Acute cough 08/19/2024 11:15 AM CDT Office Visit [facility] at [address] [address] Ernestine Khan, MARIO Acute cough (Primary Dx) 08/11/2024 2:00 PM CDT Office Visit [facility] at [address] [address] Daniela Wen PA Lower respiratory [...] on file 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 AG T: Report ID: [id number] Reading Location: [id number] Procedure Note Prasanth Doyle MD - 08/20/2024 [...] Prasanth Doyle M.D. AG T: Report ID: [id number] Reading Location: [id number] Ernestine Khan BOBCAT OPERATOR IMG XR PROCEDURES Final Re sult from Last 3 Months Insurance [facility] MEDICARE ADVANTAGE [employer] Care Teams Concrete Rod Buster Relationship Specialty Start Date End Date Randy Kenyon DO [address] [facility] [address] [place] [address] PCP - General Internal Medicine 08/20/24
--- OUTSIDE RECORDS SUMMARY | 2024-10-28 00:33 | XMS_ITS | Clinical Summary ---
Author Organization [facility] Address [address] [place] [address] Care Team Providers Care Cyber Defense Analyst Name Role Phone Unavailable Primary Care Provider Unavailabl e Source Comments [facility],non-owned Affiliates and Associated Physician Practices is amultiple site organization consisting of ambulatory clinics and hospital sitesin [place], [place], [place] and [place]. This disclosure is being madepursuant to the Care Everywhere program and may not contain all information available regarding this patient. Last updated 17.[facility] [employer] 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
--- OUTSIDE RECORDS SUMMARY | 2024-10-28 00:33 | XMS_ITS | Clinical Summary ---
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 Role Phone Randy Kenyon DO Primary Care Provider [phone] Allergies Active Allergy Reactions Criticality Noted Date [...] Description 08/20/2024 10:35 AM CDT Ancillary Procedure [facility] Imaging at [address] [address] Acute cough 08/20/2024 Results Follow-Up [facility] at [address] [address] Ernestine Khan, MARIO XR Chest Pa Lateral 2 Views 08/19/2024 11:15 AM CDT Office Visit [facility] at [address] [address] Ernestine Khan, MARIO Acute cough (Primary Dx) 08/11/2024 2:00 PM CDT Office Visit [facility] Medical [facility] Care at [address] [address] Daniela Wen PA Lower respiratory infection (Primary Dx) from Last 3 Months Social History Tobacco Use Types Packs/Day Years Used Date Smoking Tobacco: Never Assessed Sex and Gender Information Value Date Recorded Sex Assigned at Not on file 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 AG T: Report ID: [id number] Reading Location: [id number] Procedure Note Prasanth Doyle MD - 08/20/2024 [...] Prasanth Doyle M.D. 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
[2024-10-28] MEDS: ACETAMINOPHEN 500 MG TABLET 1000 MG PO (07:41)
[2024-10-28] MEDS: KETOROLAC 15 MG/ML VIAL (*BKC) IV PUSH (07:42)
[2024-10-28] MEDS: LACTATED RINGERS 1,000 ML 30 ML IV CONT (07:50)
--- NOTE | 2024-10-28 08:00 | WPDHPUPDATE1 ---
History and Physical Update Update Date/Time: 10/28/24 08:00 History and Physical has been reviewed, including an updated exam of the patient. There are NO changes in the patient's condition. Risks, benefits, and alternatives have been discussed and questions answered. Patient agrees to proceed with procedure. Right Knee arthroscopy, partial meniscectomy, proceed as indicated.
--- NOTE | 2024-10-28 08:14 | WPDANESEPPF ---
Anes - Initial Pre Proc Eval Procedure: Operation Date: 10/28/24 09:00 Proposed Procedures p Right Knee Arthroscopy, Partial Meniscectomy, Proceed As Indicated - Juan Diego Goodrich MD Date/Time: 10/28/24 08:14 Surgeon: Juan Diego Goodrich MD Pre Op Diagnosis: right knee medial meniscal tear Patient Data Age: 69 Gender: M Height: 1.91 m Weight: 126 kg Last Vital Signs Temp 36.3 C L 10/28/24 07:00 Pulse 63 10/28/24 07:00 Resp 16 10/28/24 07:00 BP 153/91 H 10/28/24 07:00 Pulse Ox 94 10/28/24 07:00 Allergies Allergy/AdvReac Type Severity Reaction Status Date / Time Penicillins Allergy Intermediate HIVES Verified 10/28/24 06:57 rofecoxib AdvReac Intermediate Other Verified 10/28/24 06:57 Home Medications ?Medication ?Instructions ?Recorded ?Confirmed ?Type aspirin 81 mg tablet,delayed 81 mg PO DAILY 09/30/19 10/28/24 History release ibuprofen-diphenhydramine citrate 1 cap PO ONCE PRN sleep 09/30/19 10/28/24 History 200 mg-38 mg tablet (Advil PM) levothyroxine 75 mcg tablet 75 mcg PO DAILY #90 tabs 07/09/24 10/28/24 Rx losartan 100 mg tablet 100 mg PO DAILY #90 tabs 07/09/24 10/23/24 Rx albuterol sulfate 90 mcg/actuation 2 puff inhalation Q6H PRN 08/23/24 10/23/24 History aerosol inhaler (Ventolin HFA) shortness of breath or wheezing betamethasone valerate 0.1 % 1 applic topical BID PRN skin 08/23/24 10/23/24 History topical cream irritation loratadine 10 mg tablet (Claritin) 10 mg PO DAILY 08/23/24 10/23/24 History diclofenac sodium 75 mg 75 mg PO BID #40 tabs 10/01/24 10/28/24 Rx tablet,delayed release acetaminophen 500 mg tablet 1,000 mg PO QID PRN pain 10/23/24 10/23/24 History (Acetaminophen Extra Strength) hydrocodone 5 mg-acetaminophen 325 1 tablet PO Q4H PRN pain #30 tabs 10/28/24 Rx mg tablet Patient hx anesthesia problems: none Family hx anesthesia problems: none Results Review: All pre-operative results and documents have been reviewed as part of the pre-operative evaluation. 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 Other Diabetes mellitus Family history of arthritis Family history of malignant neoplasm of male breast Social History Social History Smoking status: Never smoker Second hand tobacco smoke exposure: No Alcohol intake: current Substance use: never Substance use type: does not use Current Housing: Decline to Answer Concerned About Future Housing: Decline to Answer Difficulty Paying Gas/Electric Bills: Decline to Answer Difficulty Paying for Meds: Decline to Answer Currently Unemployed: Decline to Answer Education: Decline to Answer Difficulty w/ Childcare or Family Care: Decline to Answer Living arrangements: with family Additional living arrangements comments: Occupation/Education: retired Additional occupation/education comments: [employer] Gender identity (if verbalized by the patient): Male Spiritual care concerns: No Anes - Eval Final PreProcedure Day of Procedure 10/28/24 08:14 Patient weight: obese Heart: regular rate and rhythm Lungs: clear to auscultation Airway: Mallampati scale class II Neurological: alert and oriented Last oral intake: >/= 8 hours ASA classification: III Emergent: no Anesthetic plan: proceed Anesthesia type and monitoring: general LMA and standard monitoring Results Review: All pre-operative results and documents have been reviewed as part of the pre-operative evaluation. Informed Consent: The patient's anesthetic plan and its attendant risks and benefits were discussed with the patient/family/POA. Questions were solicited and answers provided to the satisfaction of the patient/family/POA.
[2024-10-28] MEDS: ceFAZolin 3 GM/D5W 100 ML 100 ML IVPB (08:20)
[2024-10-28] MEDS: LIDO 1%/EPINEPHRINE 1:100,000 20 ML VIAL 10 ML INFILTRATE (08:49)
--- NOTE | 2024-10-28 09:00 | W.PM.PROC2 ---
Procedure Note - Detailed Date of Procedure 10/28/24 Pre-op Diagnosis Right knee medial and lateral meniscal tears Post-op Diagnosis Same Procedure Performed RIGHT knee arthroscopy with partial meniscectomy Surgeon Juan Diego Goodrich MD Anesthesia General Indications Pain, Locking and Catching Description of Procedure Patient brought to operating room # 7. An anesthetic was administered. The knee was sterilely prepped and draped in the usual manner. Standard portals were used. Superior medial portal was used for the outflow cannula, inferior lateral portal was used for the scope, inferior medial portal was used for the instruments. Arthroscopy was performed, the patellar femoral joint degenerative changes. The medial compartment showed a complex tear. The lateral compartment showed a small tear in the midbody posteriorly as well.. The ACL was intact. Using baskets and tam the meniscal tears were trimmed back to a stable base so the nothing further could be pulled into the joint. 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 I smoothed that trimmed up and then used a [place] pick to hopefully induce a bleeding and cartilaginous on growth. Any loose or delaminated fragments were gently trimmed to a stable base. At this point the instruments were withdrawn, sutures placed and patient left the operating room in satisfactory condition. Estimated Blood Loss 20 Drains No Packing No Pathology None sent Complications No immediate complications Condition Stable Disposition PACU [facility] Billing Surgery - Charge Forward: Surgery Billing ([id number] Scope Meniscal tears)
[2024-10-28] MEDS: fentaNYL CITRATE INJ (*CRX) 100 MCG/2 ML VIAL 25 MCG IV PUSH (09:43)
== END 2024-10-28 10:40 | disposition home or self-care (01) ==
PROVIDERS: PCP Nurse Practitioner; Visit Provider Orthopaedic Surgery
PROC: (CPT 29870; principal; 2024-10-28 09:00)
DX: M23.331 Other meniscus derangements, other medial meniscus, right knee (principal); M23.361 Other meniscus derangements, other lateral meniscus, right knee; M94.261 Chondromalacia, right knee; E66.9 Obesity, unspecified; Z68.34 Body mass index [BMI] 34.0-34.9, adult
CPT/HCPCS: 29880; A9270; J0690; J1100; J1885; J2003; J2004; J2250; J2405; J2704; J3010; J7120